=== PATIENT | female | born 1985 | race African-American/Black ===

== ENCOUNTER 2021-08-16 11:56 | Emergency (ER) | payer OTHER ==
[~2021-08-16] VITALS: Ht 162.6 cm; Wt 79.4 kg
[2021-08-16 14:36] LABS: BILIRUBIN,URINE NEGATIVE (NEG); CLARITY,URINE CLOUDY; COLOR,URINE YELLOW; NITRITE,URINE NEGATIVE (NEG); PROTEIN,URINE NEGATIVE (NEG-TRACE)
[2021-08-16 14:41] LABS: BACTERIA,URINE FEW /HPF (0-FEW); RBC,URINE 0 /HPF (0-2); WBC,URINE 0 /HPF (0-4)
[2021-08-16 14:43] LABS: BARBITURATES NEG (NEG); BENZODIAZEPINES NEG (NEG); CANNABINOIDS POS (NEG); COCAINE POS (NEG); METHADONE NEG (NEG); OPIATES NEG (NEG); PHENCYCLIDINE NEG (NEG)
[2021-08-16 14:44] LABS: AMPHETAMINE/METHAMPHETAMINE NEG (NEG)
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
[2021-08-16] MEDS ORDERED: AMLO-187 PO (14:58)
[2021-08-16 15:09] LABS: CREATININE ISTAT 0.7 mg/dL (0.5-1.4); HEMOGLOBIN ISTAT 13.3 g/dL (12-15); ION CA ISTAT 1.27 mmol/L (1.13-1.32); POTASSIUM ISTAT 4.4 mmol/L (3.5-5.0)
[2021-08-16 15:14] VITALS: BP 154/85
== END 2021-08-16 15:28 | disposition home or self-care (01) ==
LOC: ER 11:56
DX: I10 Essential (primary) hypertension (principal); F14.10 Cocaine abuse, uncomplicated; F12.10 Cannabis abuse, uncomplicated; F17.200 Nicotine dependence, unspecified, uncomplicated
CPT/HCPCS: 80047; 80307; 81001; 82962; 84484; 99283; 99284

== ENCOUNTER 2021-12-16 20:56 | Emergency (ER) | payer OTHER ==
[~2021-12-16] VITALS: Ht 162.6 cm; Wt 80.0 kg
[~2021-12-16 20:56] MED LIST: AMLO-187 PO
[2021-12-16] MEDS ORDERED: MORPHINE IR 15 MG TABLET PO PRN (22:00)
[2021-12-16] MEDS ORDERED: LISINOPRIL 20 MG TABLET PO ONE (22:00)
[2021-12-16 22:29] VITALS: BP 211/116
--- NOTE | 2021-12-16 22:36 | RAD ---
Exam: Right knee 3 views. Right tibia and fibula 2 views INDICATION: Pain, injury TECHNIQUE: Frontal, lateral oblique views of the right knee. Frontal and lateral views the right tibi a and fibula Comparisons: None FINDINGS: Right knee: Bone mineralization is normal. No acute or healed fractures. Soft tissues are unremarkable. Joint spa manuel are well-maintained. Right tibia and fibula: Bone mineralization is normal. No acute or healed fractures. Soft tissues are unremarkable. Joint spa manuel are well-maintained. IMPRESSION: 1. No acute osseous abnormality of the right knee. 2. No acute osseous abnormality of the right tibia and fibula. Electronically signed by: José Tiwari MD (12/16/2021 10:33 PM) [facility]
--- NOTE | 2021-12-16 22:37 | RAD ---
Exam: Left clavicle 2 views. Left shoulder 3 views INDICATION: Pain, and TECHNIQUE: Frontal and axillary views of the left clavicle. Frontal view of the left shoulder with in ternal and external rotation and transscapular Y views Comparisons: None FINDINGS: Shoulder: Bone mineralization is normal. No acute or healed fractures. Soft tissues are unremarkable. Joint spa manuel are well-maintained. Clavicle: Bone mineralization is normal. No acute or healed fractures. Soft tissues are unremarkable. Joint spa manuel are well-maintained. IMPRESSION: 1. No acute osseous abnormality of the left clavicle. 2. No acute osseous abdomen the of the left shoulder. Electronically signed by: José Tiwari MD (12/16/2021 10:35 PM) [facility]
[2021-12-16] MEDS ORDERED: ACET500T68 PO (23:22)
[2021-12-16] MEDS ORDERED: AMLO-187 PO (23:22)
[2021-12-16] MEDS ORDERED: MORP15TA PO (23:22)
--- NOTE | 2021-12-16 23:23 | PHYS DOC ---
Past Medical History Past Medical History: Hypertension Past Surgical History: , Tubal ligation, Other Additional Past Surgical Histo: facial surgery Smoking Status: Current Every Day Smoker Alcohol Use: Rarely Drug Use: Cocaine, Marijuana Adult General Chief Complaint Chief Complaint: MECHANICAL FALL HPI HPI The patient is a 36-year-old female with a history of hypertension, not compliant with medication for several months. She presents for evaluation of a ground-level fall, mechanical in nature, last evening which occurred when she lost her footing outside by her smoker. She denies hitting head or neck but endorses discomfort over the left shoulder and left clavicle as well as the right knee and upper pretibial area on the right. She is ambulatory with a mildly antalgic gait. Has been taking Tylenol without complete relief of symptoms. Patient is alert and pleasantly and appropriately interactive and in no acute distress with appropriate vital signs aside from markedly elevated blood pressure without signs or symptoms of acute endorgan damage. Patient states her blood pressure normally runs high when she does not take her medicine and she states she has not taken her medicine for several months. Review of Systems Review of Systems A 12 point review of systems was completed and was negative except where noted in HPI above. Current Medications Current Medications Current Medications Medications (Trade) Dose Ordered Sig/Allison Start Time Stop Time Status Last Admin Dose Admin Lisinopril (Prinivil) 20 mg 1X ONCE 12/16/21 22:00 12/16/21 22:01 DC 12/16/21 22:29 20 MG Morphine Sulfate (Morphine Ir) 15 mg 1X PRN 12/16/21 22:00 12/16/21 22:30 15 MG Allergies Allergies Allergies Coded Allergies Type Severity Reaction Last Updated Verified No Known Drug Allergies 01/13/14 No Physical Exam Physical Exam 36-year-old female appearing nontoxic and in no acute distress. Head is normocephalic and atraumatic. Neck is supple and nontender. Oropharynx is moist. Lungs are clear to auscultation at all stations. There is a normal S1 and S2 without rubs or gallops and capillary refill is appropriate, less than 2 seconds globally. Abdomen is soft, nontender and nondistended. Skin is warm and dry without cyanosis, clubbing or edema. Psychiatrically, the patient demonstrates appropriate mood and affect and is alert. Evaluation of the extre mities reveals BUEs and BLEs neurovascularly intact distally with strength 5-5, sensation intact light touch in all nerve distributions, radial, DP and PT pulses 2+ and equal bilaterally, capillary refill less than 2 seconds, hands and feet warm and well-perfused. No dependent peripheral edema distally. No calf tenderness or swelling bilaterally. Chantal's test is negative bilaterally. Mild abrasion to the midline pretibial area just below the knee on the right. Mild swelling over the inferior aspect of the anterior right knee. Mild discomfort with active and passive ranging at the right knee but patient has full active and passive ranging at the knee. Mild tenderness over the mid and outer left clavicle and over the anterior and superior portions of the left shoulder without erythema, warmth, swelling or any limitation in ranging at the shoulder joint. Current Patient Data Vital Signs Vital Signs Date Time Temp Pulse Resp B/P (MAP) Pulse Ox O2 Delivery O2 Flow Rate FiO2 12/16/21 22:30 20 98 Room Air 12/16/21 22:29 73 211/116 12/16/21 21:31 98.2 98.2 EKG EKG [] Radiology/Procedures Radiology/Procedures Exam: Right knee 3 views. Right tibia and fibula 2 views INDICATION: Pain, injury TECHNIQUE: Frontal, lateral oblique views of the right knee. Frontal and lateral views the right tibia and fibula Comparisons: None FINDINGS: Right knee: Bone mineralization is normal. No acute or healed fractures. Soft tissues are unremarkable. Joint spaces are well-maintained. Right tibia and fibula: Bone mineralization is normal. No acute or healed fractures. Soft tissues are unremarkable. Joint spaces are well-maintained. IMPRESSION: 1. No acute osseous abnormality of the right knee. 2. No acute osseous abnormality of the right tibia and fibula. Electronically signed by: José Sterling MD (12/16/2021 10:33 PM) [facility] DICTATED and SIGNED BY: JOSÉ STERLING MD DATE: 12/16/21 [id number] 0 Exam: Left clavicle 2 views. Left shoulder 3 views INDICATION: Pain, and TECHNIQUE: Frontal and axillary views of the left clavicle. Frontal view of the left shoulder with internal and external rotation and transscapular Y views Comparisons: None FINDINGS: Shoulder: Bone mineralization is normal. No acute or healed fractures. Soft tissues are unremarkable. Joint spaces are well-maintained. Clavicle: Bone mineralization is normal. No acute or healed fractures. Soft tissues are unremarkable. Joint spaces are well-maintained. IMPRESSION: 1. No acute osseous abnormality of the left clavicle. 2. No acute osseous abdomen the of the left shoulder. Electronically signed by: José Sterling MD (12/16/2021 10:35 PM) [facility] DICTATED and SIGNED BY: JOSÉ STERLING MD DATE: 12/16/21 [id number] 0 Course & Med Decision Making Course & Med Decision Making Plain films without evidence of fracture. Will provide sling for left shoulder comfort and Bubba wrap and crutches to stay off the right leg until the knee feels better. Tetanus up-to-date. Will discharge home with firm instructions to return to primary care in the next 1 to 2 days to follow-up on blood pressure as it was elevated in the emergency department today without signs or symptoms of acute end organ damage. We will prescribe some amlodipine for blood pressure to tide the patient over until she has an opportunity to see her primary doctor. Will prescribe Tylenol for discomfort and a few oral morphine pills for breakthrough pain. Patient understands that if she feels worse instead of better or develops other new symptoms of concern that she will need to return to the emergency department immediately for reevaluation. All questions are answered. Dragon Disclaimer Dragon Disclaimer This electronic medical record was generated, in whole or in part, using a voice recognition dictation system. Departure Departure Impression: Primary Impression: Benign essential hypertension Additional Impressions: Contusion of right knee and lower leg Contusion of left clavicle Fall from other slipping, tripping, or stumbling Disposition: 01 HOME / SELF CARE / HOMELESS Condition: IMPROVED Patient Instructions: Contusion, Hypertension Additional Instructions: Follow-up very closely with your primary care doctor in the next 1 to 2 days for a reevaluation of your symptoms and a discussion of next best steps in care. Your blood pressure was elevated today and we are prescribing 2 weeks of a blood pressure medication called amlodipine to tide you over until you have an opportunity to see your doctor in follow-up. Take as prescribed. Take a 500 mg extra Tylenol pill every 6 hours as needed for discomfort. For pain not well controlled with Tylenol you may take an oral morphine pill every 6 hours as needed. Be careful because oral morphine can make you sleepy so do not drive or work or operate machinery while taking it. Stay off your leg (use the crutches) until it feels better but you may bear weight as early and as often as you want to on the leg in question. Wear the sling for comfort but you may move your arm out of the sling as early and as often as you want to. Return to the emergency department right away for worsening symptoms of any kind or with any other new symptoms of concern. Scripts Amlodipine Besylate (AMLODIPINE BESYLATE) 10 Mg Tablet 10 MG PO DAILY for 14 Days, #14 TAB Prov: LI HAMPTON MD 12/16/21 Morphine Sulfate (MORPHINE SULFATE) 15 Mg Tablet 1 TAB PO QID PRN for breakthrough pain, #7 TAB Prov: LI HAMPTON MD 12/16/21 Acetaminophen (ACETAMINOPHEN) 500 Mg Tablet 1 TAB PO PRN Q6HRS PRN for pain or fever, #50 TAB 0 Refills Prov: LI HAMPTON MD 12/16/21 Problem Qualifiers Additional Impressions: Contusion of right knee and lower leg Encounter type: initial encounter Qualified Codes: S80.01XA - Contusion of right knee, initial encounter; S80.11XA - Contusion of right lower leg, initial encounter Contusion of left clavicle Encounter type: initial encounter Qualified Codes: T14.8XXA - Other injury of unspecified body region, initial encounter LI HAMPTON MD Dec 16, 2021 23:23
== END 2021-12-16 23:32 | disposition home or self-care (01) ==
LOC: ER 20:56
DX: S80.01XA Contusion of right knee, initial encounter (principal); S40.012A Contusion of left shoulder, initial encounter; S80.11XA Contusion of right lower leg, initial encounter; I10 Essential (primary) hypertension; F17.200 Nicotine dependence, unspecified, uncomplicated; W01.0XXA Fall on same level from slipping, tripping and stumbling without subsequent striking against object, initial encounter; Y93.89 Activity, other specified; Y92.89 Other specified places as the place of occurrence of the external cause; Y99.8 Other external cause status
CPT/HCPCS: 73000; 73030; 73562; 73590; 99284

== ENCOUNTER 2022-03-14 19:26 | Emergency (ER) | payer OTHER ==
[~2022-03-14] VITALS: Ht 162.6 cm; Wt 80.0 kg
[~2022-03-14 19:26] MED LIST changes: +ACET500T68 PO; +MORP15TA PO
[2022-03-14 20:29] LABS: BASO # 0.1 x10^3/uL (0.0-0.2); BASO % 1 % (0-3); EOS # 0.1 x10^3/uL (0.0-0.7); EOS % 1 % (0-3); HEMATOCRIT 36.3 % (36.0-47.0); LYMPH # 1.9 x10^3/uL (1.0-4.8); LYMPH % 22 % (24-48); MEAN CORPUSCULAR HEMOGLOBIN 29 pg (25-35); MEAN CORPUSCULAR HGB CONC 33 g/dL (31-37); MEAN CORPUSCULAR VOLUME 88 fL (79-100); MONO # 0.8 x10^3/uL (0.0-1.1); MONO % 9 % (0-9); NEUT # 5.7 x10^3/uL (1.8-7.7); NEUT % 67 % (31-73); PLATELET COUNT 257 x10^3/uL (140-400); RED BLOOD COUNT 4.12 x10^6/uL (3.50-5.40); RED CELL DISTRIBUTION WIDTH 15.7 % (11.5-14.5); WHITE BLOOD COUNT 8.5 x10^3/uL (4.0-11.0)
[2022-03-14 20:41] LABS: CALCIUM 9.3 mg/dL (8.5-10.1); CREATININE 0.9 mg/dL (0.6-1.0); GFR 86.7; POTASSIUM 3.3 mmol/L (3.5-5.1)
[2022-03-14 20:47] LABS: ALBUMIN 3.8 g/dL (3.4-5.0); ALBUMIN/GLOBULIN RATIO 0.9 (1.0-1.7); TOTAL BILIRUBIN 0.5 mg/dL (0.2-1.0); TOTAL PROTEIN 8.2 g/dL (6.4-8.2)
[2022-03-14 20:53] LABS: AMPHETAMINE/METHAMPHETAMINE NEG (NEG); BARBITURATES NEG (NEG); BENZODIAZEPINES NEG (NEG); CANNABINOIDS POS (NEG); COCAINE POS (NEG); METHADONE NEG (NEG); OPIATES NEG (NEG); PHENCYCLIDINE NEG (NEG)
[2022-03-14 20:58] LABS: HYALINE CASTS, URINE MODERATE /HPF
[2022-03-14 20:59] LABS: AMORPHOUS SEDIMENT,UR PRESENT /HPF; BACTERIA,URINE FEW /HPF (0-FEW); RBC,URINE 0 /HPF (0-2)
[2022-03-14 21:58] LABS: U PREG PATIENT NEGATIVE (NEG)
[2022-03-14 22:17] VITALS: BP 160/84
--- NOTE | 2022-03-14 22:31 | RAD ---
INDICATION: Reason: abd pain / Spl. Instructions: / History: COMPARISON: None. TECHNIQUE: Axial CT images were obtained through the abdomen and pelvis without intravenous contrast. One or more of the following individualized dose reduction techniques were utilized for this examinat ion: 1. Automated exposure control; 2. Adjustment of the mA and/or kV according to patient size; 3 . Use of iterative reconstruction technique. FINDINGS: Vascular: Calcific atherosclerosis. Hepatobiliary: No intrahepatic biliary duct dilation. Pancreas: Limited assessment without contrast. Spleen: Spleen unremarkable. Renal/Bladder: No hydronephrosis. Urinary bladder is decompressed. Gastrointestinal: Fat-containing umbilical hernia. Colonic diverticulosis. No periappendiceal inflamm atory changes. No dilated loops of bowel to suggest obstruction. IMPRESSION: * No evidence of bowel obstruction or appendicitis. * No hydronephrosis. Electronically signed by: Josue Jo MD (03/14/2022 10:29 PM) [id number]
--- NOTE | 2022-03-14 22:58 | PHYS DOC ---
Past Medical History Past Medical History: Hypertension Past Surgical History: , Tubal ligation, Other Additional Past Surgical Histo: facial surgery Smoking Status: Current Every Day Smoker Alcohol Use: Rarely Drug Use: Cocaine, Marijuana General Adult EDM: Chief Complaint: ABDOMINAL PAIN HPI: HPI: Patient is a 36 year old female who presents the ED today complaining of 6 out of 10 left sided abdominal pain, symptoms of been going on since the beginning of this month for 1 day. Patient denies any injuries. She states she started a new job today and she has to lift and move items and does not know if this is the source of her pain or not. Denies anything relieving the pain but states walking exacerbates the pain. Denies any urgency, frequency or dysuria. Review of Systems: Review of Systems: Constitutional: Denies fever or chills. [] Eyes: Denies change in visual acuity. [] HENT: Denies nasal congestion or sore throat. [] Respiratory: Denies cough or shortness of breath. [] Cardiovascular: Denies chest pain or edema. [] GI: Reports left-sided abdominal pain, denies nausea, vomiting, bloody stools or diarrhea. [] : Denies dysuria. [] Musculoskeletal: Denies back pain or joint pain. [] Integument: Denies rash. [] Neurologic: Denies headache, focal weakness or sensory changes. [] Psychiatric: Denies depression or anxiety. [] Heart Score: C/O Chest Pain: N/A Risk Factors: Risk Factors: DM, Current or recent (<one month) smoker, HTN, HLP, family history of CAD, obesity. Risk Scores: Score 0 - 3: 2.5% MACE over next 6 weeks - Discharge Home Score 4 - 6: 20.3% MACE over next 6 weeks - Admit for Clinical Observation Score 7 - 10: 72.7% MACE over next 6 weeks - Early Invasive Strategies Allergies: Allergies: Allergies Coded Allergies Type Severity Reaction Last Updated Verified No Known Drug Allergies 01/13/14 No Physical Exam: PE: Constitutional: Well developed, well nourished, no acute distress, non-toxic appearance. [] HENT: Normocephalic, atraumatic, bilateral external ears normal, oropharynx moist, no oral exudates, nose normal. [] Eyes: PERRLA, EOMI, conjunctiva normal, no discharge. [] Neck: Normal range of motion, no tenderness, supple, no stridor. [] Cardiovascular:Heart rate regular rhythm, no murmur [] Lungs & Thorax: Bilateral breath sounds clear to auscultation [] Abdomen: Rounded abdomen. Bowel sounds normal, soft, no tenderness, no masses, no pulsatile masses. [] Skin: Warm, dry, no erythema, no rash. [] Back: No tenderness, no CVA tenderness. [] Extremities: No tenderness, no cyanosis, no clubbing, ROM intact, no edema. [] Neurologic: Alert and oriented X 3, normal motor function, normal sensory func tion, no focal deficits noted. [] Psychologic: Affect normal, judgement normal, mood normal. [] Current Patient Data: Labs: Laboratory Tests Test 03/14/22 20:22 03/14/22 20:35 White Blood Count 8.5 x10^3/uL (4.0-11.0) Red Blood Count 4.12 x10^6/uL (3.50-5.40) Hemoglobin 12.0 g/dL (12.0-15.5) Hematocrit 36.3 % (36.0-47.0) Mean Corpuscular Volume 88 fL (79-100) Mean Corpuscular Hemoglobin 29 pg (25-35) Mean Corpuscular Hemoglobin Concent 33 g/dL (31-37) Red Cell Distribution Width 15.7 % (11.5-14.5) H Platelet Count 257 x10^3/uL (140-400) Neutrophils (%) (Auto) 67 % (31-73) Lymphocytes (%) (Auto) 22 % (24-48) L Monocytes (%) (Auto) 9 % (0-9) Eosinophils (%) (Auto) 1 % (0-3) Basophils (%) (Auto) 1 % (0-3) Neutrophils # (Auto) 5.7 x10^3/uL (1.8-7.7) Lymphocytes # (Auto) 1.9 x10^3/uL (1.0-4.8) Monocytes # (Auto) 0.8 x10^3/uL (0.0-1.1) Eosinophils # (Auto) 0.1 x10^3/uL (0.0-0.7) Basophils # (Auto) 0.1 x10^3/uL (0.0-0.2) Sodium Level 137 mmol/L (136-145) Potassium Level 3.3 mmol/L (3.5-5.1) L Chloride Level 100 mmol/L (98-107) Carbon Dioxide Level 30 mmol/L (21-32) Anion Gap 7 (6-14) Blood Urea Nitrogen 11 mg/dL (7-20) Creatinine 0.9 mg/dL (0.6-1.0) Estimated GFR (Cockcroft-Gault) 86.7 BUN/Creatinine Ratio 12 (6-20) Glucose Level 99 mg/dL (70-99) Calcium Level 9.3 mg/dL (8.5-10.1) Total Bilirubin 0.5 mg/dL (0.2-1.0) Aspartate Amino Transferase (AST) 26 U/L (15-37) Alanine Aminotransferase (ALT) 22 U/L (14-59) Alkaline Phosphatase 114 U/L (46-116) Total Protein 8.2 g/dL (6.4-8.2) Albumin 3.8 g/dL (3.4-5.0) Albumin/Globulin Ratio 0.9 (1.0-1.7) L Lipase 82 U/L (73-393) Ethyl Alcohol Level < 10 mg/dL (0-10) Urine Collection Type Unknown Urine Color (Auto) Yellow Urine Turbidity Clear Urine pH (Auto) 6.0 (<5.0-8.0) Urine Specific Nora 1.024 (1.000-1.030) Urine Protein (Auto) 30 mg/dL (Negative) Urine Glucose (Auto)(UA) Negative mg/dL (Negative) Urine Ketones (Auto) Trace mg/dL (Negative) Urine Blood (Auto) Negative (Negative) Urine Nitrite Negative (Negative) Urine Bilirubin (Auto) Negative (Negative) Urine Urobilinogen (Auto) 3 mg/dL (Normal) Urine Leukocyte Esterase (Auto) Negative (Negative) Urine RBC 0 /HPF (0-2) Urine WBC 1-4 /HPF (0-4) Urine Squamous Epithelial Cells Many /LPF Urine Amorphous Sediment Present /HPF Urine Bacteria Few /HPF (0-FEW) Urine Hyaline Casts Moderate /HPF Urine Mucus Marked /LPF Urine Test Negative (NEG) Urine Opiates Screen Neg (NEG) Urine Methadone Screen Neg (NEG) Urine Barbiturates Neg (NEG) Urine Phencyclidine Screen Neg (NEG) Urine Amphetamine/Methamphetamine Neg (NEG) Urine Benzodiazepines Screen Neg (NEG) Urine Cocaine Screen Pos (NEG) Urine Cannabinoids Screen Pos (NEG) Urine Ethyl Alcohol Neg (NEG) Laboratory Tests 03/14/22 20:22 Laboratory Tests 03/14/22 20:22 EKG: EKG: [] Radiology/Procedures: Radiology/Procedures: []PROCEDURE: CT ABDOMEN PELVIS WO CONTRAST INDICATION: Reason: abd pain / Spl. Instructions: / History: COMPARISON: None. TECHNIQUE: Axial CT images were obtained through the abdomen and pelvis without intravenous contrast. One or more of the following individualized dose reduction techniques were utilized for this examination: 1. Automated exposure control; 2. Adjustment of the mA and/or kV according to patient size; 3. Use of iterative reconstruction technique. FINDINGS: Vascular: Calcific atherosclerosis. Hepatobiliary: No intrahepatic biliary duct dilation. Pancreas: Limited assessment without contrast. Spleen: Spleen unremarkable. Renal/Bladder: No hydronephrosis. Urinary bladder is decompressed. Gastrointestinal: Fat-containing umbilical hernia. Colonic diverticulosis. No periappendiceal inflammatory changes. No dilated loops of bowel to suggest obstruction. IMPRESSION: * No evidence of bowel obstruction or appendicitis. * No hydronephrosis. Electronically signed by: Hang Jo MD (03/14/2022 10:29 PM) DESKTOP- [id number] DICTATED and SIGNED BY: HANG JO MD DATE: 03/14/222220 Course & Med Decision Making: Course & Med Decision Making Pertinent Labs and Imaging studies reviewed. (See chart for details) This is a 36-year-old female patient presented to the ED today with left-sided abdominal pain, symptoms have been going on for 1 day. Negative urine hCG, CBC CMP with no acute findings, CT of the abdomen and pelvis is negative. UA negative for infection. Discharge to home. Follow-up with PCP in 1 to 2 weeks Dasia Disclaimer: Dasia Disclaimer: This electronic medical record was generated, in whole or in part, using a voice recognition dictation system. Departure Departure Impression: Primary Impression: Left sided abdominal pain Disposition: HOME / SELF CARE / HOMELESS Condition: STABLE Referrals: NO PCP (PCP) Follow-up with your doctor in 1 week Patient Instructions: Abdominal Pain Additional Instructions: You were evaluated in the emergency room for abdominal pain. Your lab work as well as CT of the abdomen and pelvis are negative for any acute findings. Please follow-up with your doctor in 1 to 2 weeks. Take Tylenol or Motrin for pain. EFRA GÓMEZ APRN Mar 14, 2022 22:58
== END 2022-03-14 23:00 | disposition home or self-care (01) ==
LOC: ER 19:26
DX: R10.12 Left upper quadrant pain (principal); I10 Essential (primary) hypertension; F17.200 Nicotine dependence, unspecified, uncomplicated; Z98.51 Tubal ligation status
CPT/HCPCS: 36415; 74176; 80053; 80307; 81001; 81025; 83690; 85025; 99285; G0480